=== PATIENT | male | born 1985 | race Caucasian/White ===

== ENCOUNTER 2024-04-30 06:22 | Day surgery (SDC) | payer OTHER, SELFPAY ==
[2024-04-30 07:11] VITALS: BMI 35.8
[2024-04-30 07:12] VITALS: BMI 35.8
[2024-04-30 07:13] VITALS: BP 160/98
[2024-04-30 08:54] VITALS: BP 121/76
[2024-04-30 09:00] VITALS: BP 118/78
[2024-04-30 09:15] VITALS: BP 109/74
== END 2024-04-30 09:25 | disposition home or self-care (01) ==
LOC: SDS 06:22
PROVIDERS: ATTENDING PHYSICIAN Internal Medicine Gastroenterology
DX: Z12.11 Encounter for screening for malignant neoplasm of colon (principal); K63.89 Other specified diseases of intestine; K64.0 First degree hemorrhoids; Z86.0100 Personal history of colon polyps, unspecified
CPT/HCPCS: 45380; 88305